=== PATIENT | female | born 1990 | race Caucasian/White ===

== ENCOUNTER → 2023-11-12 08:15 | Outpatient (REF) | payer OTHER, SELFPAY | LOC: PNTC 08:15 | PROVIDERS: ATTENDING PHYSICIAN Obstetrics & Gynecology | DX: O35.5XX0 Maternal care for (suspected) damage to fetus by drugs, not applicable or unspecified (principal); O09.899 Supervision of other high risk pregnancies, unspecified trimester; O09.219 Supervision of pregnancy with history of pre-term labor, unspecified trimester | CPT/HCPCS: 76805 ==

== ENCOUNTER → 2023-12-10 10:18 | Outpatient (REF) | payer OTHER, SELFPAY | LOC: PNTC 10:18 | PROVIDERS: ATTENDING PHYSICIAN Obstetrics & Gynecology | DX: O09.219 Supervision of pregnancy with history of pre-term labor, unspecified trimester (principal); O09.899 Supervision of other high risk pregnancies, unspecified trimester | CPT/HCPCS: 76811; 76817 ==

== ENCOUNTER → 2024-01-07 09:24 | Outpatient (REF) | payer OTHER, SELFPAY | LOC: PNTC 09:24 | PROVIDERS: ATTENDING PHYSICIAN Obstetrics & Gynecology | DX: O09.219 Supervision of pregnancy with history of pre-term labor, unspecified trimester (principal) | CPT/HCPCS: 76816; 76817 ==

== ENCOUNTER → 2024-01-28 08:21 | Outpatient (REF) | payer OTHER, SELFPAY | LOC: PNTC 08:21 | PROVIDERS: ATTENDING PHYSICIAN Obstetrics & Gynecology | DX: Z87.51 Personal history of pre-term labor (principal); O35.5XX0 Maternal care for (suspected) damage to fetus by drugs, not applicable or unspecified | CPT/HCPCS: 76816 ==

== ENCOUNTER → 2024-02-26 08:17 | Outpatient (REF) | payer OTHER, SELFPAY | LOC: PNTC 08:17 | PROVIDERS: ATTENDING PHYSICIAN Obstetrics & Gynecology | DX: O35.8XX0 Maternal care for other (suspected) fetal abnormality and damage, not applicable or unspecified (principal); O42.919 Preterm premature rupture of membranes, unspecified as to length of time between rupture and onset of labor, unspecified trimester | CPT/HCPCS: 76816 ==

== ENCOUNTER → 2024-03-25 08:24 | Outpatient (REF) | payer OTHER, SELFPAY | LOC: PNTC 08:24 | PROVIDERS: ATTENDING PHYSICIAN Obstetrics & Gynecology | DX: O99.320 Drug use complicating pregnancy, unspecified trimester (principal) | CPT/HCPCS: 36415; 76816 ==

== ENCOUNTER 2024-04-11 05:37 | Inpatient (IN) | payer OTHER, SELFPAY ==
[2024-04-11 05:54] VITALS: BP 115/66; BMI 25.8
[2024-04-11 06:13] LABS: % Basophils 0.4 % (0-2); % Eosinophils 0.9 % (0-6); % Immature Granulocytes 2.3 % (0-0.5); % Lymphocytes 25.8 % (20.5-51.1); % Monocytes 9.2 % (1.7-9.3); % Neutrophils 61.4 % (42.2-75.2); Absolute Basophils 0.1 10^3/uL (0-0.2); Absolute Eosinophils 0.1 10^3/uL (0-0.7); Absolute Immature Granulocytes 0.3 10^3/uL (0-0.05); Absolute Lymphocytes 3.6 10^3/uL (1.2-3.4); Absolute Monocytes 1.3 10^3/uL (0.1-0.6); Absolute Neutrophils 8.6 10^3/uL (1.4-6.5); Hematocrit 33.3 % (37.0-47.0); Hemoglobin 11.2 g/dL (12.0-16.0); Mean Corp Hgb Conc. 33.6 g/dL (33.0-37.0); Mean Corpuscular Hgb 26.6 pg (27.0-31.0); Mean Corpuscular Volume 79.1 fL (81.0-99.0); Nucleated Red Blood Cells % 0 %; Platelet Count 247 10^3/uL (130-400); Red Blood Cell Count 4.21 10^6/uL (4.20-5.40); Red Cell Dist. Width 14.6 % (11.5-14.5)
[2024-04-11] MEDS: PENICILLIN 110 UNITS IV (06:27)
[2024-04-11] MEDS: PITOCIN 30 UNITS/NSS 500 ML IV (06:38)
[2024-04-11] MEDS: ZOLOFT 25 MG PO (10:42)
[2024-04-11] MEDS: TYLENOL 650 MG PO ×3 (10:49→21:12)
[2024-04-12 05:02] LABS: Hematocrit 28.6 % (37.0-47.0); Hemoglobin 9.4 g/dL (12.0-16.0)
[2024-04-12] MEDS: ZOLOFT 25 MG PO (08:03)
[2024-04-12] MEDS: FEOSOL 325 MG PO (09:59)
[2024-04-12] MEDS: TYLENOL 650 MG PO (14:23)
[2024-04-13] MEDS: FEOSOL 325 MG PO (08:11)
[2024-04-13] MEDS: ZOLOFT 25 MG PO (08:11)
[2024-04-13] MEDS: M-M-R II 0.5 ML SC (10:51)
[2024-04-14 13:50] LABS: Syphilis/T. pallidum Ab Reflex Negative (Negative)
== END 2024-04-13 11:55 | disposition home or self-care (01) | DRG 807 ==
LOC: LDRP 05:37
PROVIDERS: Obstetrics & Gynecology; ADMITTING PHYSICIAN Obstetrics & Gynecology
PROC: 0KQM0ZZ Repair Perineum Muscle, Open Approach (ICD-10-PCS; 2024-04-11)
PROC: 10E0XZZ Delivery of Products of Conception, External Approach (ICD-10-PCS; 2024-04-11)
DX: O98.82 Other maternal infectious and parasitic diseases complicating childbirth (principal); Z37.0 Single live birth; B95.1 Streptococcus, group B, as the cause of diseases classified elsewhere; O70.1 Second degree perineal laceration during delivery; O99.344 Other mental disorders complicating childbirth; F41.9 Anxiety disorder, unspecified; F32.A Depression, unspecified; Z3A.38 38 weeks gestation of pregnancy; Z88.6 Allergy status to analgesic agent
CPT/HCPCS: 85014; 85018; 85025; 86780; 86850; 86900; 86901; 90707